=== PATIENT | male | born 1980 | race Caucasian/White ===

== ENCOUNTER 2018-07-21 03:09 | Emergency (ER) | payer BC ==
[~2018-07-21] VITALS: Ht 170.2 cm; Wt 70.3 kg
[~2018-07-21 03:09] MED LIST: CEPHALEXIN500 MG ORAL; NKM
[2018-07-21] MEDS ORDERED: PSEUDOEPHEDRINE60 MG PO (03:27)
[2018-07-21 03:39] VITALS: BP 139/79
--- NOTE | 2018-07-21 03:39 | NUR ---
ER Nurse Note: Pt came from home c/o right flank pain and difficulty urinating since 07/20. Pt stated pain is 8/10 sharp, non radiating. Pt stated he has dry lips even when hydrating. Pt bowel sounds heard in all quadrants; abd soft, round. Pt a&ox4, VSS. Pt has hx of kindey stones 8 years ago and "feels the same symptoms" now. ERMD at pt side; [facility]
[2018-07-21] MEDS ORDERED: Ketorolac 30mg Inj IV ONE (03:45)
[2018-07-21 03:58] LABS: MEAN CORPUSCULAR VOLUME 88 FL (80-99); PLATELET COUNT 233 K/UL (150-450); RED BLOOD COUNT 4.52 M/UL (4.70-6.10); RED CELL DISTRIBUTION WIDTH 10.4 % (11.6-14.8)
[2018-07-21 03:58] LABS: APPEARANCE,URINE SLIGHTLY CLOUDY; BILIRUBIN, URINE NEGATIVE (NEGATIVE); GLUCOSE, URINE (UA) NEGATIVE (NEGATIVE); KETONES,URINE 3+ (NEGATIVE); LEUKOCYTE ESTERASE ,URINE 1+ (NEGATIVE); NITRITE,URINE NEGATIVE (NEGATIVE); PH,URINE 5 (4.5-8.0); PROTEIN,URINE 2+ (NEGATIVE); UROBILINOGEN,URINE NORMAL MG/DL (0.0-1.0)
[2018-07-21 04:01] LABS: COLOR,URINE YELLOW
[2018-07-21 04:08] LABS: ANION GAP 15 mmol/L (5-15); BLOOD UREA NITROGEN 17 mg/dL (7-18); CALCIUM 9.4 MG/DL (8.5-10.1); CARBON DIOXIDE 21 MMOL/L (21-32); CHLORIDE 95 MMOL/L (98-107); CREATININE 1.2 MG/DL (0.55-1.30); POTASSIUM 3.6 MMOL/L (3.5-5.1); SODIUM 131 MMOL/L (136-145)
[2018-07-21 04:18] LABS: ALANINE AMINOTRANSFERASE 40 U/L (12-78); ALBUMIN 4.2 G/DL (3.4-5.0); ALBUMIN/GLOBULIN RATIO 1.1 (1.0-2.7); ALKALINE PHOSPHATASE 78 U/L (46-116); ASPARTATE AMINO TRANSFERASE 32 U/L (15-37); BILIRUBIN,TOTAL 1.9 MG/DL (0.2-1.0)
[2018-07-21 04:20] LABS: BILIRUBIN,DIRECT 0.2 MG/DL (0.0-0.3)
--- NOTE | 2018-07-21 04:38 | Emergency Room Report ---
History of Present Illness General Chief Complaint: Male Urogenital Problems Source: Patient Present Illness HPI 38-year-old male presents ED for evaluation. Complaining of right flank pain which started last night. Sudden onset. Sharp, 8 out of 10, radiating towards the groin. Also complaining of difficulty urinating. Notes nausea and vomiting initially. States he's had a prior history of kidney stone many years ago and states this feels similar. Denies chest pain or shortness of breath. Denies fevers chills. No other aggravating relieving factors. Denies any other associated symptoms Allergies: Coded Allergies: MORPHINE (Verified Allergy, 08/15/13) Patient History Past Medical History: other - kidney stones Past Surgical History: none Pertinent Family History: none Social History: Denies: smoking, alcohol use, drug use Immunizations: UTD Reviewed Nursing Documentation: PMH: Agreed; PSxH: Agreed Nursing Documentation-PMH Hx Gastrointestinal Problems: Yes - hernia, Review of Systems All Other Systems: negative except mentioned in HPI Physical Exam Vital Signs Date Time Temp Pulse Resp B/P (MAP) Pulse Ox O2 Delivery O2 Flow Rate FiO2 07/21/18 03:19 98.2 88 16 139/79 99 Room Air Sp02 EP Interpretation: reviewed, normal General Appearance: no apparent distress, alert, GCS 15, non-toxic Head: normocephalic, atraumatic Eyes: bilateral eye normal inspection, bilateral eye PERRL ENT: hearing grossly normal, normal pharynx, no angioedema, normal voice Neck: full range of motion, supple/symm/no masses Respiratory: chest non-tender, lungs clear, normal breath sounds, speaking full sentences Cardiovascular #1: regular rate, rhythm, no edema Cardiovascular #2: 2+ carotid (R), 2+ carotid (L), 2+ radial (R), 2+ radial (L) , 2+ dorsalis pedis (R), 2+ dorsalis pedis (L) Gastrointestinal: normal bowel sounds, non tender, soft, non-distended, no guarding, no rebound Rectal: deferred Genitourinary: normal inspection, CVA tenderness (R) Musculoskeletal: back normal, gait/station normal, normal range of motion, non- tender Neurologic: alert, oriented x3, responsive, motor strength/tone normal, sensory intact, speech normal Psychiatric: judgement/insight normal, memory normal, mood/affect normal, no suicidal/homicidal ideation Reflexes: 3+ bicep (R), 3+ bicep (L), 3+ tricep (R), 3+ tricep (L), 3+ knee (R) , 3+ knee (L) Skin: normal color, no rash, warm/dry, well hydrated Lymphatic: no adenopathy Medical Decision Making Diagnostic Impression: Primary Impression: Kidney stone ER Course Hospital Course 38-year-old M presents to ED with R flank pain Differential diagnosis includes-appendicitis, cholecystitis, kidney stone, pyelonephritis Clinical course Patient placed on stretcher. After initial history and physical I ordered labs , IV fluids, pain medications and CT scan Labs - noted leukocytosis, electrolytes ok, LFTs normal, UA - hematuria, + bacteria CT scan shows 4mm stone in proximal R ureter with hydronephrosis/hydroureter Discussed findings with patient. Patient states pain is improved after Toradol. Vital stable. Not toxic, afebrile Discussed with urology Dr. Wilde; agrees that 4 mm stone likely pass, patient is afebrile with normal creatinine and can be likely discharged to home. Patient given IV abx here. Safe for discharge with close outpatient follow-up. We'll provide urology referrals I feel this is a highly complex case requiring extensive working including EKG/ Rhythm strip, Xray/CT/US, Blood/urine lab work, repeat exams while in ED, and administration of strong opiates/narcotics for pain control, admission to hospital or close patient follow up. Diagnosis - kidney stone Stable and discharged to home with Rx Motrin, [place], Flomax, bactrim, zofran. Followup with PMD/urology. Return to ED if symptoms recur or worsen Labs Test 07/21/18 03:30 07/21/18 03:45 Urine Color Yellow Urine Appearance Slightly cloudy Urine pH 5 (4.5-8.0) Urine Specific [place] 1.025 (1.005-1.035) Urine Protein 2+ (NEGATIVE) Urine Glucose (UA) Negative (NEGATIVE) Urine Ketones 3+ (NEGATIVE) Urine Blood 5+ (NEGATIVE) Urine Nitrite Negative (NEGATIVE) Urine Bilirubin Negative (NEGATIVE) Urine Urobilinogen Normal MG/DL (0.0-1.0) Urine Leukocyte Esterase 1+ (NEGATIVE) Urine RBC Tntc /HPF (0 - 0) Urine WBC 5-10 /HPF (0 - 0) Urine Squamous Epithelial Cells Few /LPF (NONE/OCC) Urine Bacteria Moderate /HPF (NONE) Urine Mucus Few /LPF (NONE/OCC) White Blood Count 14.0 K/UL (4.8-10.8) Red Blood Count 4.52 M/UL (4.70-6.10) Hemoglobin 14.0 G/DL (14.2-18.0) Hematocrit 40.0 % (42.0-52.0) Mean Corpuscular Volume 88 FL (80-99) Mean Corpuscular Hemoglobin 30.9 PG (27.0-31.0) Mean Corpuscular Hemoglobin Concent 35.0 G/DL (32.0-36.0) Red Cell Distribution Width 10.4 % (11.6-14.8) Platelet Count 233 K/UL (150-450) Mean Platelet Volume 5.2 FL (6.5-10.1) Neutrophils (%) (Auto) % (45.0-75.0) Lymphocytes (%) (Auto) % (20.0-45.0) Monocytes (%) (Auto) % (1.0-10.0) Eosinophils (%) (Auto) % (0.0-3.0) Basophils (%) (Auto) % (0.0-2.0) Sodium Level 131 MMOL/L (136-145) Potassium Level 3.6 MMOL/L (3.5-5.1) Chloride Level 95 MMOL/L (98-107) Carbon Dioxide Level 21 MMOL/L (21-32) Anion Gap 15 mmol/L (5-15) Blood Urea Nitrogen 17 mg/dL (7-18) Creatinine 1.2 MG/DL (0.55-1.30) Estimat Glomerular Filtration Rate > 60 mL/min (>60) Glucose Level 166 MG/DL (74-106) Calcium Level 9.4 MG/DL (8.5-10.1) Total Bilirubin 1.9 MG/DL (0.2-1.0) Direct Bilirubin 0.2 MG/DL (0.0-0.3) Aspartate Amino Transf (AST/SGOT) 32 U/L (15-37) Alanine Aminotransferase (ALT/SGPT) 40 U/L (12-78) Alkaline Phosphatase 78 U/L (46-116) Total Protein 8.1 G/DL (6.4-8.2) Albumin 4.2 G/DL (3.4-5.0) Globulin 3.9 g/dL Albumin/Globulin Ratio 1.1 (1.0-2.7) Lipase 94 U/L (73-393) CT/MRI/US Diagnostic Results CT/MRI/US Diagnostic Results : Imaging Test Ordered: CT A/P Impression There is an obstructing 4 mm calculus within the proximal right ureter, with mild right-sided hydronephrosis and proximal hydroureter. Findings are consistent with right-sided obstructive uropathy. Additional nonobstructing calculi seen within the right renal collecting system. Normal appendix. Status post bilateral inguinal hernia repair. Last Vital Signs Date Time Temp Pulse Resp B/P (MAP) Pulse Ox O2 Delivery O2 Flow Rate FiO2 07/21/18 03:39 98.2 80 16 139/79 99 Room Air Status: improved Disposition: HOME, SELF-CARE Condition: Stable Scripts Tamsulosin Hcl (TAMSULOSIN HCL*) 0.4 Mg Cap.er.24h 0.4 MG ORAL BEDTIME for 10 Days, CAP Prov: Musa Lujan MD 07/21/18 Trimethoprim/Sulfamethoxazole 160/800* (BACTRIM DS TABLET*) 1 Each Tablet 1 TAB ORAL Q12H, #14 TAB 0 Refills Prov: Musa Lujan MD 07/21/18 Ondansetron Odt* (ZOFRAN ODT*) 4 Mg Tab.rapdis 4 MG BC EVERY 8 HOURS, #10 TAB 0 Refills Prov: Musa Lujan MD 07/21/18 Hydrocodone Bit/Acetaminophen 5-325* (NORCO 5-325*) 1 Each Tablet 1 TAB ORAL Q6H PRN for For Pain, #10 TAB 0 Refills Prov: Musa Lujan MD 07/21/18 Ibuprofen* (MOTRIN*) 600 Mg Tablet 600 MG ORAL Q8H PRN for For Pain, #30 TAB 0 Refills Prov: Musa Lujan MD 07/21/18 Referrals: NOT CHOSEN IPA/,REFERRING (PCP) Musa Lujan MD Jul 21, 2018 04:38
[2018-07-21] MEDS ORDERED: cefTRIAXone 1 GM in NS 55 ML IVPB ONE (05:15)
[2018-07-21 05:26] VITALS: BP 132/76
--- NOTE | 2018-07-21 05:28 | NUR ---
ER Nurse Note: Pt calm, cooperative, no signs of distress. Pt VSS, a&ox4. ERMD explained results to pt and course of treatment. All orders given to pt; infusing fluids. Will continue to [facility].
[2018-07-21] MEDS ORDERED: IBUPROFEN600 MG ORAL (05:55)
[2018-07-21] MEDS ORDERED: BACTRIM DS TAB1 EAC1 ORAL (05:55)
[2018-07-21] MEDS ORDERED: ONDANSETRON ODT4 MG BC (05:55)
[2018-07-21] MEDS ORDERED: TAMSULOSIN HCL0.4 MG ORAL (05:55)
[2018-07-21] MEDS ORDERED: NORCO 5-325 TA1 EACH ORAL (05:55)
[2018-07-21 06:31] VITALS: BP 128/74
--- NOTE | 2018-07-21 06:35 | NUR ---
ER Nurse Note: Pt seen, treated, medically cleared for discharge by ERMD. Discharge instructions and prescriptions given wt repeat verbaliazation by pt. Instructed to follow up wt primary care proivder within one week. Pt a&ox4, VSS, no signs of distress. Pt able to ambulate safely without assistance. IV removed; site clean and bandaged. ID removed. Pt left with own transportation.
--- NOTE | 2018-07-21 09:42 | Diagnostic Imaging Report ---
Indication: Right flank pain starting last night, radiating to the groin Technique: Spiral acquisitions obtained through the abdomen and pelvis. No oral or IV contrast utilized, per urinary stone protocol. Multiplanar reconstructions were generated. Total dose length product 759.02 mGycm. CTDIvol(s) 14.79 mGy. Dose reduction achieved using automated exposure control Comparison: 11/09/2008 Findings: There is a 5 mm diameter calculus in the proximal right ureter, 5 cm distal to the the ureteropelvic junction. This results in mild hydronephrosis, minimal perinephric fat stranding. No ureteral calculi are seen distal to this and the distal ureter is normal in caliber. Multiple calyceal calculi are also demonstrated on the right, largest measuring 4 mm in diameter. Multiple punctate calyceal calculi are demonstrated on the left. The previously demonstrated left distal ureteral calculus is no longer evident, and previously demonstrated hydroureter and hydronephrosis are likewise no longer evident. Lack of IV contrast limits assessment of the renal parenchyma; no gross renal parenchymal mass or cyst demonstrated. Lack of IV contrast limits assessment of the other solid organs. The liver, gallbladder, bile ducts, pancreas, spleen, adrenals are unremarkable. No retroperitoneal or mesenteric mass or adenopathy. No pelvic mass or adenopathy. No evidence of diverticulosis or diverticulitis. Normal appendix. No small bowel distention. There is a tiny umbilical hernia again demonstrated which contains only fat. Unusual calcifications are seen in the lower anterior pelvis, previously thought to represent calcified sutures from prior surgery. The distal esophagus, stomach, duodenum are unremarkable. No free or loculated intraperitoneal gas or fluid. Impression: Positive for 5 mm proximal right ureteral calculus, resultant mild hydronephrosis and proximal hydroureter Bilateral intrarenal calculi Evidence of prior pelvic surgery, likely prior hernia repair This agrees with the preliminary interpretation provided overnight by [employer] teleradiology service. The CT scanner at [facility] is accredited by the [employer] and the scans are performed using protocols designed to limit radiation exposure to as low as reasonably achievable to attain images of sufficient resolution adequate for diagnostic evaluation.
[2018-07-22] MEDS ORDERED: PROPECIA1 MG PO (17:23)
[2018-07-22] MEDS ORDERED: IBUPROFEN600 MG ORAL (20:56)
[2018-07-22] MEDS ORDERED: COLACE100 MG ORAL (20:56)
== END 2018-07-21 06:35 | disposition home or self-care (01) ==
LOC: EMR 04:10
DX: N13.2 Hydronephrosis with renal and ureteral calculous obstruction (principal); Z88.5 Allergy status to narcotic agent
CPT/HCPCS: 36415; 74176; 80053; 81003; 82248; 83690; 85025; 87086; 96361; 96365; 96375; 99284; J0696; J1885; J2405

== ENCOUNTER 2018-07-22 17:03 | Emergency (ER) | payer BC ==
[~2018-07-22] VITALS: Ht 170.2 cm; Wt 70.3 kg
[~2018-07-22 17:03] MED LIST changes: +BACTRIM DS TAB1 EAC1 ORAL; +IBUPROFEN600 MG ORAL; +NORCO 5-325 TA1 EACH ORAL; +ONDANSETRON ODT4 MG BC; +PSEUDOEPHEDRINE60 MG PO; +TAMSULOSIN HCL0.4 MG ORAL
[2018-07-22 17:19] VITALS: BP 149/98
[2018-07-22] MEDS ORDERED: PROPECIA1 MG PO (17:23)
--- NOTE | 2018-07-22 18:23 | NUR ---
ED Nurse Note: PT. AAOX4. AMBULATORY. CAME IN TO ER DUE TO LOWER RIGHT BACK PAIN X THIS AM ALONG WITH ABDOMINAL BLOATING. PT WAS IN [facility] ER X YESTERDAY AND WAS TOLD HE HAD ONE KIDNEY STONE BY DR. Knott AND WAS INFORMED TO COME BACK IF PAIN PERSISTED.
[2018-07-22] MEDS ORDERED: Ketorolac 30mg Inj IV ONE (18:30)
[2018-07-22 18:43] LABS: APPEARANCE,URINE CLEAR; BILIRUBIN, URINE NEGATIVE (NEGATIVE); COLOR,URINE PALE YELLOW; GLUCOSE, URINE (UA) NEGATIVE (NEGATIVE); KETONES,URINE NEGATIVE (NEGATIVE); LEUKOCYTE ESTERASE ,URINE NEGATIVE (NEGATIVE); NITRITE,URINE NEGATIVE (NEGATIVE); PH,URINE 6 (4.5-8.0); PROTEIN,URINE NEGATIVE (NEGATIVE); UROBILINOGEN,URINE NORMAL MG/DL (0.0-1.0)
[2018-07-22 18:50] LABS: BASOPHILS % (AUTO) 0.8 % (0.0-2.0); EOSINOPHILS % (AUTO) 0.6 % (0.0-3.0); HEMATOCRIT 36.6 % (42.0-52.0); HEMOGLOBIN 12.5 G/DL (14.2-18.0); LYMPHOCYTES % (AUTO) 10.2 % (20.0-45.0); MEAN CORPUSCULAR VOLUME 90 FL (80-99); MONOCYTES % (AUTO) 6.9 % (1.0-10.0); NEUTROPHILS % (AUTO) 81.5 % (45.0-75.0); PLATELET COUNT 193 K/UL (150-450); RED BLOOD COUNT 4.06 M/UL (4.70-6.10); RED CELL DISTRIBUTION WIDTH 10.7 % (11.6-14.8); WHITE BLOOD COUNT 9.9 K/UL (4.8-10.8)
[2018-07-22 18:54] LABS: ANION GAP 11 mmol/L (5-15); BLOOD UREA NITROGEN 12 mg/dL (7-18); CALCIUM 8.9 MG/DL (8.5-10.1); CARBON DIOXIDE 25 MMOL/L (21-32); CHLORIDE 100 MMOL/L (98-107); CREATININE 1.3 MG/DL (0.55-1.30); POTASSIUM 4.1 MMOL/L (3.5-5.1); SODIUM 135 MMOL/L (136-145)
--- NOTE | 2018-07-22 19:15 | Emergency Room Report ---
History of Present Illness General Chief Complaint: Back Pain-No Injury Source: Patient Present Illness HPI 38-year-old male presents to the emergency department complaining of 6 out of 10 in severity intermittent sharp right-sided flank pain. Patient reports progressive symptoms since he was diagnosed with renal calculi yesterday. Patient states he was here told to return to the emergency department if his pain worsens. Patient denies blood in the urine or notably passing stones. Patient denies fevers, chills, vomiting or abdominal tenderness. Patient reports pain completely resolves between episodes he states that he has been taking antibiotics, Flomax and [place] as directed. Patient states that he has not been drinking much water due to pain/nausea. Denies aggravating or relieving factors. Pt. is also reporting feeling bloated and having some constipation from pain meds. Pt. reports he is able to pass gas. Allergies: Coded Allergies: MORPHINE (Verified Allergy, Unknown, 07/22/18) Patient History Past Medical History: see triage record Past Surgical History: none Pertinent Family History: none Reviewed Nursing Documentation: PMH: Agreed; PSxH: Agreed Nursing Documentation-PMH Past Medical History: No History, Except For Hx Cardiac Problems: No - KIDNEY STONES Hx Gastrointestinal Problems: Yes - hernia, Review of Systems All Other Systems: negative except mentioned in HPI Physical Exam Vital Signs Date Time Temp Pulse Resp B/P (MAP) Pulse Ox O2 Delivery O2 Flow Rate FiO2 07/22/18 17:19 98.4 80 16 149/98 97 Room Air Sp02 EP Interpretation: reviewed, normal General Appearance: no apparent distress - Pt. not in distress during PE., alert, GCS 15, non-toxic Head: normocephalic, atraumatic Eyes: bilateral eye normal inspection, bilateral eye PERRL ENT: hearing grossly normal, normal voice Neck: full range of motion Respiratory: lungs clear, normal breath sounds, speaking full sentences Cardiovascular #1: regular rate, rhythm Gastrointestinal: normal bowel sounds, non tender, soft, non-distended, no guarding Rectal: deferred Genitourinary: normal inspection, no CVA tenderness Musculoskeletal: back normal, gait/station normal, normal range of motion, non- tender Neurologic: alert, oriented x3, responsive, motor strength/tone normal, sensory intact, speech normal, grossly normal Psychiatric: judgement/insight normal Skin: normal color, no rash, warm/dry, well hydrated Medical Decision Making PA Attestation Dr. Mccurdy is my supervising Physician whom patient management has been discussed with. Diagnostic Impression: Primary Impression: Kidney stone ER Course 38-year-old male presents to the emergency department complaining of 6 out of 10 in severity intermittent sharp right-sided flank pain. Patient reports progressive symptoms since he was diagnosed with renal calculi yesterday. Patient states he was here told to return to the emergency department if his pain worsens. Patient denies blood in the urine or notably passing stones. Patient denies fevers, chills, vomiting or abdominal tenderness. Patient reports pain completely resolves between episodes he states that he has been taking antibiotics, Flomax and [place] as directed. Patient states that he has not been drinking much water due to pain/nausea. Denies aggravating or relieving factors. Pt. is also reporting feeling bloated and having some constipation from pain meds. Pt. reports he is able to pass gas. Ddx considered but are not limited to Diverticulitis, acute appy, diarrhea,UC, PUD, GE, pancreatitis, gallstone, kidney stone, pyelonephritis, UTI, obstruction. Vital signs: are WNL, pt. is afebrile H&PE are most consistent with possible complication from right renal calculi, pt. not in moderate distress at time of exam d/w pt. will do labs and check renal function, with current presentation I do not feel additional radiation from repeat CT exams would have significant benefits or significantly size changer. Review of this patient's CT scan from yesterday shows 5 mm nonobstructing right renal calculi with mild [place]-- official radiology report ORDERS: -CBC, CMP, lipase: WNL --- normal renal function, no elevation in WBC's - UA: only notable for RBC's no obvious suggestion for infection ED INTERVENTIONS: -- 1000NS -20mg IV Toradol --4mg Morphine for pain -Colace PO - Bactrim DS PO -I discussed with this patient that he has the option of being and it admitted for pain control he states that he feels that with current treatment regimen his pain is controlled and that he believes he can be treated as an outpatient. States that he has an appointment scheduled with Dr. Wilde on Friday. patient again is given ED return precautions for worsening or new symptoms. I discussed with this patient that realistically passing a kidney stone will cause pain and being comfortable however if he notices a significant change or increased his pain followed warrant ED return. DISCHARGE: At this time pt. is stable for d/c to home. Will provide printed patient care instructions, and any necessary prescriptions. Care plan and follow up instructions have been discussed with the patient prior to discharge. Labs Test 07/22/18 18:38 07/22/18 18:40 White Blood Count 9.9 K/UL (4.8-10.8) Red Blood Count 4.06 M/UL (4.70-6.10) Hemoglobin 12.5 G/DL (14.2-18.0) Hematocrit 36.6 % (42.0-52.0) Mean Corpuscular Volume 90 FL (80-99) Mean Corpuscular Hemoglobin 30.9 PG (27.0-31.0) Mean Corpuscular Hemoglobin Concent 34.2 G/DL (32.0-36.0) Red Cell Distribution Width 10.7 % (11.6-14.8) Platelet Count 193 K/UL (150-450) Mean Platelet Volume 5.7 FL (6.5-10.1) Neutrophils (%) (Auto) 81.5 % (45.0-75.0) Lymphocytes (%) (Auto) 10.2 % (20.0-45.0) Monocytes (%) (Auto) 6.9 % (1.0-10.0) Eosinophils (%) (Auto) 0.6 % (0.0-3.0) Basophils (%) (Auto) 0.8 % (0.0-2.0) Sodium Level 135 MMOL/L (136-145) Potassium Level 4.1 MMOL/L (3.5-5.1) Chloride Level 100 MMOL/L (98-107) Carbon Dioxide Level 25 MMOL/L (21-32) Anion Gap 11 mmol/L (5-15) Blood Urea Nitrogen 12 mg/dL (7-18) Creatinine 1.3 MG/DL (0.55-1.30) Estimat Glomerular Filtration Rate > 60 mL/min (>60) Glucose Level 94 MG/DL (74-106) Calcium Level 8.9 MG/DL (8.5-10.1) Urine Color Pale yellow Urine Appearance Clear Urine pH 6 (4.5-8.0) Urine Specific [place] 1.010 (1.005-1.035) Urine Protein Negative (NEGATIVE) Urine Glucose (UA) Negative (NEGATIVE) Urine Ketones Negative (NEGATIVE) Urine Blood 4+ (NEGATIVE) Urine Nitrite Negative (NEGATIVE) Urine Bilirubin Negative (NEGATIVE) Urine Urobilinogen Normal MG/DL (0.0-1.0) Urine Leukocyte Esterase Negative (NEGATIVE) Urine RBC 5-10 /HPF (0 - 0) Urine WBC 2-4 /HPF (0 - 0) Urine Squamous Epithelial Cells None /LPF (NONE/OCC) Urine Bacteria Few /HPF (NONE) Last Vital Signs Date Time Temp Pulse Resp B/P (MAP) Pulse Ox O2 Delivery O2 Flow Rate FiO2 07/22/18 17:19 98.4 80 16 149/98 97 Room Air Disposition: HOME, SELF-CARE Condition: Stable Scripts Docusate Sodium* (COLACE*) 100 Mg Capsule 100 MG ORAL THREE TIMES A DAY, #30 CAP Prov: Thania Villela 07/22/18 Ibuprofen* (MOTRIN*) 600 Mg Tablet 600 MG ORAL THREE TIMES A DAY, #30 TAB 0 Refills Prov: Thania Villela 07/22/18 Departure Forms: Return to Work Return to Work Date: Jul 25, 2018 Work Restrictions: None Other Restrictions: May return Sooner if Symptoms have resolved. Return to Full Activity: Jul 25, 2018 Patient Instructions: Dietary Guidelines to Help Prevent Kidney Stones, Kidney Stones Additional Instructions: Take new and previously prescribed medications as directed. Drink Plenty of Water =) Follow up with a Primary Care Provider in 3-5 days, even if your symptoms have resolved. --Please review list of primary care clinics, if you do not already have a primary care provider Return sooner to ED if new symptoms occur, or current symptoms become worse. - Please note that this Emergency Department Report was dictated using [employer] r[employer] technology software, occasionally this can lead to erroneous entry secondary to interpretation by the dictation equipment. Thania Villela Jul 22, 2018 19:15
[2018-07-22 19:38] VITALS: BP 145/88
[2018-07-22] MEDS ORDERED: DiphenhydrAMINE 50mg/ml Inj IVP ONE (19:45)
[2018-07-22] MEDS ORDERED: Morphine Sulfate 4mg/ml Inj (IV USE ONLY) IVP ONE (19:45)
[2018-07-22] MEDS ORDERED: Docusate 100mg cap ORAL ONE (20:15)
[2018-07-22] MEDS ORDERED: IBUPROFEN600 MG ORAL (20:56)
[2018-07-22] MEDS ORDERED: COLACE100 MG ORAL (20:56)
[2018-07-22] MEDS ORDERED: Bactrim-DS 1 tab ORAL ONE (21:00)
[2018-07-22 21:21] VITALS: BP 145/88
--- NOTE | 2018-07-22 21:21 | NUR ---
ER DISCHARGE NOTE: Patient is cleared to be discharged per ERMD, pt is aox4, on room air, with stable vital signs. pt was given dc and prescription instructions, pt was able to verbalize understanding, pt id band and iv site removed without complications. pt is able to ambulate with steady gait. pt took all belongings.
== END 2018-07-22 21:21 | disposition home or self-care (01) ==
LOC: EMR 18:05
DX: N20.0 Calculus of kidney (principal); Z87.442 Personal history of urinary calculi; Z88.5 Allergy status to narcotic agent
CPT/HCPCS: 36415; 80048; 81003; 85025; 96361; 96374; 96375; 99284; J1200; J1885; J2270

== ENCOUNTER 2018-09-23 08:49 | Day surgery (SDC) | payer BC ==
[2018-09-23] VITALS (12 sets, daily range): BP systolic 108–136; BP diastolic 69–86
[~2018-09-23] VITALS: Ht 170.2 cm; Wt 69.4 kg
[~2018-09-23 08:49] MED LIST changes: +COLACE100 MG ORAL; +PROPECIA1 MG PO; +ceFAZolin sod 1 GM in NS 55 ML IVPB ONE
--- NOTE | 2018-09-23 09:43 | Pre-Procedure Note/Attestation ---
Pre-Procedure Note/Attestation Complete Prior to Procedure Planned Procedure: right Procedure Narrative: RIRS ESWL Right stent placement Indications for Procedure Pre-Operative Diagnosis: kidney stone Attestation I attest that I discussed the nature of the procedure; its benefits; risks and complications; and alternatives (and the risks and benefits of such alternatives ), prior to the procedure, with the patient (or the patient's legal ambulatory services representative). I attest that, if there was a reasonable possibility of needing a blood transfusion, the patient (or the patient's legal ambulatory services representative) was given the [facility] standardized written summary, pursuant to the [place] Blood Safety Act ([place] Health and Safety Code # 1645, as amended). I attest that I re-evaluated the patient just prior to the surgery and that there has been no change in the patient's H&P, except as documented below: Ashok Wilde MD September 23, 2018 09:43
[2018-09-23] MEDS ORDERED: Midazolam 2mg/2ml Inj ONE (11:06)
[2018-09-23] MEDS ORDERED: Propofol 200mg/20ml IV ONE (11:06)
[2018-09-23] MEDS ORDERED: Lidocaine 1% MPF 10mg/ml 5ml ONE (11:06)
[2018-09-23] MEDS ORDERED: fentaNYL 100 mcg/2 mL IV ONE (11:06)
[2018-09-23] MEDS ORDERED: LR 1000ml ONE (12:00)
[2018-09-23] MEDS ORDERED: Iothalamate Meglumine 60% 30ML INJ ONE (12:14)
[2018-09-23] MEDS ORDERED: LR 1000ml 1,000 ML IVLG SCH (12:48)
--- NOTE | 2018-09-23 12:48 | Anethesia Preoperative Eval ---
Anesthesia Pre-op PMH/ROS General Date of Evaluation: September 23, 2018 Time of Evaluation: 12:02 Anesthesiologist: Marie ASA Score: ASA 2 Mallampati Score Class I : Soft palate, uvula, fauces, pillars visible Class II: Soft palate, uvula, fauces visible Class III: Soft palate, base of uvula visible Class IV: Only hard plate visible Mallampati Classification: Class II Surgeon: Andry Diagnosis: R kidney stone Surgical Procedure: EWSL Anesthesia History: none Family History: no anesthesia problems Allergies: Coded Allergies: No Known Allergies (Unverified , 09/23/18) Medications: see eMAR Patient NPO?: Yes Past Medical History Cardiovascular: Denies: HTN, CAD, [place], valve dz, arrhythmia, other Pulmonary: Denies: asthma, COPD, MADHU, other Gastrointestinal/Genitourinary: Reports: GERD, other - kidney stones; Denies: CRI, ESRD Neurologic/Psychiatric: Denies: dementia, CVA, depression/anxiety, TIA, other Endocrine: Denies: DM, hypothyroidism, steroids, other HEENT: Denies: cataract (L), cataract (R), glaucoma, [place]OWER [place] (L), LOWER [place] (R), other Hematology/Immune: Denies: anemia, DVT, bleeding disorder, other Musculoskeletal/Integumentary: Denies: OA, RA, DJD, DDD, edema, other PMH Narrative: as above PSxH Narrative: hernia repair Anesthesia Pre-op Phys. Exam Physician Exam Last Vital Signs Date Time Temp Pulse Resp B/P (MAP) Pulse Ox O2 Delivery O2 Flow Rate FiO2 09/23/18 09:39 Room Air 09/23/18 09:27 98.1 86 18 136/86 98 Constitutional: NAD Neurologic: CN 2-12 intact Cardiovascular: RRR, no M/R/G Respiratory: CTA Gastrointestinal: S/NT/ND Airway Exam Mallampati Score: Class II MO: full ROM: full Teeth: intact Anesthesia Pre-op A/P Labs see chart Risk Assessment & Plan Assessment: ASA 2 Plan: GA with LMA Status Change Before Surgery: No Pre-Antibiotics Drug: Cefoxitin 1gr Given Within 1 Hr of Incision: Yes Time Given: 12:36 Alo Salazar MD September 23, 2018 12:48
[2018-09-23] MEDS ORDERED: Ketorolac 30mg Inj IV PRN (13:00)
[2018-09-23] MEDS ORDERED: DiphenhydrAMINE 50mg/ml Inj IVP PRN (13:00)
[2018-09-23] MEDS ORDERED: Meperidine 50mg/ml Inj(FOR RIGORS ONLY) IV PRN (13:00)
--- NOTE | 2018-09-23 13:09 | Brief Operative Note ---
Immediate Post Operative Note Operative Note Pre-op Diagnosis: kidney stone Procedure: RIRS right ESWL RPG stent placement left Post-op Diagnosis: same Post-op Diagnosis: same as pre-op Surgeon: Dereje Wilde Anesthesia: general Specimen: none Complications: none Condition: stable Fluids: 500 Estimated Blood Loss: minimal Implant(s) used?: No Ashok Wilde MD September 23, 2018 13:09
[2018-09-23] MEDS ORDERED: HYDROcodone/Acetamin 5/325 tab ORAL PRN (13:15)
[2018-09-23] MEDS ORDERED: HYDROmorphone 1mg/ml Carpuject SUBQ PRN (13:15)
[2018-09-23] MEDS ORDERED: Tylenol #3 tab (300mg/30mg) ORAL PRN (13:15)
[2018-09-23] MEDS ORDERED: D5 1/2NS 1,000 ML IV SCH (13:15)
--- NOTE | 2018-09-23 13:19 | Immediate Post-Op Evaluation ---
Immediate Post-Op Evalulation Immediate Post-Op Evalulation Procedure: ESWL retrograde pyelogram, stent placement Date of Evaluation: September 23, 2018 Time of Evaluation: 13:18 IV Fluids: 1000 Blood Products: none Estimated Blood Loss: min Urinary Output: n/a Blood Pressure Systolic: 130 Blood Pressure Diastolic: 86 Pulse Rate: 84 Respiratory Rate: 22 O2 Sat by Pulse Oximetry: 99 Temperature (Fahrenheit): 97.6 Pain Score (1-10): 1 Nausea: No Vomiting: No Complications none Patient Status: reacts, patent, none Hydration Status: adequate Alo Salazar MD September 23, 2018 13:19
--- NOTE | 2018-09-23 14:53 | 48 Hour Post Anesthesia Eval ---
Post Anesthesia Evaluation Procedure: ESWL retrograde pyelogram, stent placement Date of Evaluation: September 23, 2018 Time of Evaluation: 14:52 Blood Pressure Systolic: 116 0: 72 Pulse Rate: 74 Respiratory Rate: 20 Temperature (Fahrenheit): 97.5 O2 Sat by Pulse Oximetry: 98 Airway: patent Nausea: No Vomiting: No Pain Intensity: 2 Hydration Status: adequate Cardiopulmonary Status: stable Mental Status/LOC: patient returned to baseline Follow-up Care/Observations: n/a Post-Anesthesia Complications: none Follow-up care needed: ready to discharge Alo Salazar MD September 23, 2018 14:53
--- NOTE | 2018-09-23 20:30 | Operative Note - Dictated ---
DATE OF OPERATION: 09/23/2018 PREOPERATIVE DIAGNOSIS: Right renal stone. POSTOPERATIVE DIAGNOSIS: Right renal stone. OPERATION: Extracorporeal shock wave lithotripsy combined with retrograde intrarenal surgery, retrograde pyelogram, double-J stent placement in the right kidney. OPERATED BY: Ashok Wilde M.D. ANESTHESIA: General. FINDINGS: Stone in the mid upper calyx of the right kidney. INDICATIONS FOR SURGERY: The patient had left flank pain and found to have renal stones. Treatment options were explained to him in great length including all potential complications. He signed a consent. PROCEDURE IN DETAIL: He was brought to the operating room, placed in the lithotomy position, and prepped and draped in the standard fashion under general anesthesia. Cystoscope was introduced into the bladder. Right ureter was found and cannulated. Bladder was normal. Contrast was injected showing stone approximately 7 cm in the dependent calyx of the right kidney. Using extracorporeal shock wave lithotripsy, the stone was fragmented with 9 kilovolts and 1200 shocks combined with laser lithotripsy. Rest of the procedure was without any complications. Double-J stent, 28 x 6 was placed and left indwelling John catheter. The patient tolerated the procedure well. He received perioperative antibiotics and 20 mg of Lasix. Ashok Wilde M.D. DR: MEHUL JOB#: [id number] CC:
== END 2018-09-23 16:30 | disposition home or self-care (01) ==
LOC: SUR 08:49
DX: N20.0 Calculus of kidney (principal); K21.9 Gastro-esophageal reflux disease without esophagitis; I10 Essential (primary) hypertension; Z79.899 Other long term (current) drug therapy
CPT/HCPCS: 50590; 52332; J1885; J1940; J2175; J2250; J2704; J3010; Q9961; 94003; 94150

== ENCOUNTER 2018-11-03 09:26 | Outpatient (CLI) | payer BC ==
[~2018-11-03 09:26] MED LIST changes: -ceFAZolin sod 1 GM in NS 55 ML IVPB ONE
--- NOTE | 2018-11-05 23:13 | Diagnostic Imaging Report ---
APPROVED REPORT CPT Code: 52578 Symptoms Comments: Pain R/O Raynaud's Disease BILATERAL: Common femoral artery waveform analysis is within normal limits at rest. Color flow duplex sonography reveals patency of the superficial femoral, popliteal, and tibial arteries, there is no evidence of stenosis or occlusion within these segments. Doppler tibial artery waveform analysis is within normal limits, bilaterally. There is no evidence of significant arterial occlusive disease, bilaterally.
--- NOTE | 2018-11-05 23:13 | Diagnostic Imaging Report ---
APPROVED REPORT CPT Code: 98620 Present Symptoms Comments: Pain R/O Raynaud's Disease BILATERAL: Imaging reveals a patent deep venous system bilaterally. There is no evidence of thrombus within the femoral, popliteal or tibial segments. The greater saphenous veins are also within normal limits. Doppler indicates normal spontaneous flow within these segments.
== END 2018-11-03 11:26 | disposition home or self-care (01) ==
LOC: VAS 09:26
DX: R52 Pain, unspecified (principal)
CPT/HCPCS: 93925; 93970